=== PATIENT | female | born 1965 ===

== ENCOUNTER 2017-05-18 16:19 | Emergency (ER) | payer OTHER ==
[2017-05-18 16:34] VITALS: TEMP 98.1
[2017-05-18] MEDS ORDERED: DiphenhydrAMINE 50 mg/ml Inj IVP STA ×2 (17:06→19:13)
[2017-05-18 17:21] LABS: BASO % 0.5 % (0.0-2.0); EOS # 0.1 K/uL (0.0-0.7); EOS % 1.3 % (0.0-4.0); HEMOGLOBIN 12.6 g/dL (12.0-16.0); LYMPH # 2.3 K/uL (1.0-4.3); LYMPH % 32.4 % (20.0-40.0); MEAN CELL VOLUME 89.6 fl (81.0-99.0); MEAN CORPUSCULAR HEMOGLOBIN 29.4 pg (27.0-31.0); MEAN CORPUSCULAR HGB CONC 32.8 g/dL (33.0-37.0); MEAN PLATELET VOLUME 8.2 fl (7.2-11.7); MONO # 0.4 K/uL (0.0-0.8); MONO % 6.1 % (0.0-10.0); NEUT # 4.3 K/uL (1.8-7.0); NEUT % 59.7 % (50.0-75.0); NRBC % 0.1 % (0.0-0.0); RBC 4.27 Mil/uL (3.80-5.20); RED CELL DISTRIBUTION WIDTH 13.7 % (11.5-14.5); WHITE BLOOD COUNT 7.2 K/uL (4.8-10.8)
[2017-05-18 17:23] LABS: PARTIAL THROMBOPLASTIN TIME 28.8 Seconds (25.6-37.1)
[2017-05-18 17:28] LABS: ALB/GLOB RATIO 1.1 (1.0-2.1); ALBUMIN 4.3 g/dL (3.5-5.0); ALT/SGPT 67 U/L (9-52); AST/SGOT 43 U/L (14-36); BLOOD UREA NITROGEN 23 mg/dl (7-17); GFR AFRICAN-AMERICAN > 60; GFR NON-AFRICAN AMERICAN > 60
[2017-05-18] MEDS ORDERED: DiphenhydrAMINE 50 mg/ml Inj ONE (19:23)
--- NOTE | 2017-05-18 19:50 | ED PDOC ---
HPI: SOB/CHF/COPD Time Seen by Provider: 05/18/17 16:39 Chief Complaint (Nursing): Shortness Of Breath Chief Complaint (Provider): SOB, chest pain - Surgery 1 week ago History Per: Patient History/Exam Limitations: no limitations Onset/Duration Of Symptoms: Days (3) Current Symptoms Are (Timing): Still Present Additional Complaint(s): 51 yo female with history of thyroid disease 1 week s/p ankle surgery on the right ankle presents with 3 days of SOB and chest pain. PT states she was also having pain in the right calf but it improved after the cast was removed and she was placed in a walking boot. Past Medical History Reviewed: Historical Data, Nursing Documentation, Vital Signs Vital Signs: Last Vital Signs Temp 98.1 F 05/18/17 16:32 Pulse 18 L 05/18/17 16:32 Resp 20 05/18/17 17:10 BP 117/78 05/18/17 16:32 Pulse Ox 100 05/18/17 16:32 - Medical History PMH: Hypothyroidism - Surgical History Surgical History: No Surg Hx - Family History Family History: States: No Known Family Hx - Allergies Allergies/Adverse Reactions: Allergies Allergy/AdvReac Type Severity Reaction Status Date / Time Iodinated Contrast- Oral and Allergy ITCHING Verified 05/18/17 16:32 IV Dye morphine Allergy SHORTNESS Verified 05/18/17 16:36 OF BREATH Penicillins Allergy RASH Verified 05/18/17 16:32 polyethylene glycol 3350 Allergy SWELLING Verified 05/18/17 16:32 [From Miralax] Review of Systems ROS Statement: Except As Marked, All Systems Reviewed And Found Negative Constitutional: Negative for: Fever, Chills Respiratory: Positive for: Shortness of Breath, SOB with Exertion Gastrointestinal: Negative for: Nausea, Vomiting, Diarrhea Musculoskeletal: Positive for: Leg Pain Physical Exam - Reviewed Nursing Documentation Reviewed: Yes Vital Signs Reviewed: Yes - Physical Exam Appears: Positive for: Well, Non-toxic, No Acute Distress Head Exam: Positive for: ATRAUMATIC, NORMAL INSPECTION, NORMOCEPHALIC Skin: Positive for: Normal Color, Warm, DRY Eye Exam: Positive for: Normal appearance ENT: Positive for: Normal ENT Inspection Neck: Positive for: Normal, Painless ROM Cardiovascular/Chest: Positive for: Regular Rate, Rhythm Respiratory: Positive for: Normal Breath Sounds. Negative for: Accessory Muscle Use Gastrointestinal/Abdominal: Positive for: Normal Exam, Bowel Sounds, Soft Back: Positive for: Normal Inspection Extremity: Positive for: Normal ROM Neurologic/Psych: Positive for: Alert, Oriented - Laboratory Results Result Diagrams: 05/18/17 17:00 05/18/17 17:00 - ECG O2 Sat by Pulse Oximetry: 100 Medical Decision Making Medical Decision Making: Endorsed pending chest CT and US to r/o PE/DVT. Disposition - Clinical Impression Clinical Impression: Chest pain - Patient ED Disposition Is Patient to be Admitted: Transfer of Care - Disposition Disposition: Transfer of Care Disposition Time: 20:00 Condition: STABLE
--- NOTE | 2017-05-18 19:53 | ED PDOC ---
HPI: SOB/CHF/COPD Time Seen by Provider: 05/18/17 16:39 Chief Complaint (Nursing): Shortness Of Breath Past Medical History Vital Signs: Last Vital Signs Temp 98.1 F 05/18/17 16:32 Pulse 18 L 05/18/17 16:32 Resp 20 05/18/17 17:10 BP 117/78 05/18/17 16:32 Pulse Ox 100 05/18/17 19:52 - Medical History PMH: Hypothyroidism - Surgical History Surgical History: No Surg Hx - Family History Family History: States: No Known Family Hx - Allergies Allergies/Adverse Reactions: Allergies Allergy/AdvReac Type Severity Reaction Status Date / Time Iodinated Contrast- Oral and Allergy ITCHING Verified 05/18/17 16:32 IV Dye morphine Allergy SHORTNESS Verified 05/18/17 16:36 OF BREATH Penicillins Allergy RASH Verified 05/18/17 16:32 polyethylene glycol 3350 Allergy SWELLING Verified 05/18/17 16:32 [From Miralax] Wells Criteria for PE - Wells Criteria for Pulmonary Embolism Clinical Signs and Symptoms of DVT: Yes P.E is #1 Diagnosis, or Equally Likely: Yes Heart Rate >100: No Immobilization at least 3 days;Surgery previous 4 weeks: Yes Previous, objectively diagnosed PE or DVT: No Hemoptysis: No Malignancy w/treatment within 6 months, or palliative: No Total Score: 5.5 - Laboratory Results Result Diagrams: 05/18/17 17:00 05/18/17 17:00 - ECG O2 Sat by Pulse Oximetry: 100 Disposition - Clinical Impression Clinical Impression: Chest pain - Disposition Disposition: Transfer of Care Disposition Time: 20:00 Condition: STABLE Forms: [employer] (Slovenian)
[2017-05-18] MEDS ORDERED: Iodixanol 320 MG/ML 100 ML BOTTLE IV ONE (20:37)
--- NOTE | 2017-05-18 21:10 | US ---
EXAM: US Duplex Right Lower Extremity Veins CLINICAL HISTORY: 51 years old, female; Pain; Leg, lower; Right; Prior surgery; Surgery date: 3-7 days post-operative; Surgery type: Tendon repair; Additional info: Leg pain, SOB, R/O dvt TECHNIQUE: Real-time ultrasound scan of the veins of the right lower extremity with color Doppler flow, spectral waveform analysis and compression. COMPARISON: No relevant prior studies available. FINDINGS: Deep veins: Normal color and spectral Doppler flow. Normal compressibility. No deep vein thrombosis from common femoral to popliteal vein. Superficial veins: No thrombosis. Soft tissues: No popliteal cyst. IMPRESSION: 1. No evidence of DVT within RIGHT lower extremity.
--- NOTE | 2017-05-18 21:29 | CT ---
EXAM: CT Angiography Chest With Intravenous Contrast CLINICAL HISTORY: 51 years old, female; Pain and signs and symptoms; Shortness of breath; Chest pain; Type not specified; Patient HX: Ankle surgery 1 week ago; Additional info: Chest pain, right ankle surgery, SOB TECHNIQUE: Axial computed tomographic angiography images of the chest with intravenous contrast using pulmonary embolism protocol. All CT scans at this facility use one or more dose reduction techniques, viz.: automated exposure control; ma/kV adjustment per patient size (including targeted exams where dose is matched to indication; i.e. head); or iterative reconstruction technique. MIP reconstructed images were created and reviewed. Coronal and sagittal reformatted images were created and reviewed. CONTRAST: 80 mL of [id number] administered intravenously. COMPARISON: No relevant prior studies available. FINDINGS: Limitations: Motion artifact - mild. Pulmonary arteries: No definite pulmonary embolism. Aorta: No aneurysm. No dissection. Lungs: No consolidation. Few pulmonary nodules, largest up to 0.8 cm within left upper lobe. Pleural space: No significant effusion. No pneumothorax. Heart: No cardiomegaly. No significant pericardial effusion. Thyroid: Diminutive or absent left lobe of thyroid. Bones/joints: No acute fracture. Soft tissues: Unremarkable. Lymph nodes: Few borderline enlarged short axis hilar lymph nodes. Liver: Few probable hepatic cysts. IMPRESSION: 1. No definite CT evidence of pulmonary embolism. 2. Pulmonary nodules. For low-risk patients recommend follow-up chest CT at 3-6 months. If unchanged consider an additional follow-up CT at 18-24 months. For high-risk patients (smoking history or other known risk factors) initial follow-up chest CT at 3-6 months and if unchanged, 18-24 months. 3. Incidental/non-acute findings are described above.
[2017-05-18 21:37] VITALS: BP 113/73; PULSE 72; RESP 16; O2SAT 99
--- NOTE | 2017-05-18 23:14 | ED PDOC ---
- Laboratory Results Result Diagrams: 05/18/17 17:00 05/18/17 17:00 - ECG O2 Sat by Pulse Oximetry: 99 - Progress ED Course And Treament: Case endorsed to typewriter aligner from Eleazar WILBURN pending imaging, re-eval EXAM: CT Angiography Chest With Intravenous Contrast CLINICAL HISTORY: 51 years old, female; Pain and signs and symptoms; Shortness of breath; Chest pain; Type not specified; Patient HX: Ankle surgery 1 week ago; Additional info: Chest pain, right ankle surgery, SOB TECHNIQUE: Axial computed tomographic angiography images of the chest with intravenous contrast using pulmonary embolism protocol. All CT scans at this facility use one or more dose reduction techniques, viz.: automated exposure control; ma/kV adjustment per patient size (including targeted exams where dose is matched to indication; i.e. head); or iterative reconstruction technique. MIP reconstructed images were created and reviewed. Coronal and sagittal reformatted images were created and reviewed. CONTRAST: 80 mL of [id number] administered intravenously. COMPARISON: No relevant prior studies available. FINDINGS: Limitations: Motion artifact - mild. Pulmonary arteries: No definite pulmonary embolism. Aorta: No aneurysm. No dissection. Lungs: No consolidation. Few pulmonary nodules, largest up to 0.8 cm within left upper lobe. Pleural space: No significant effusion. No pneumothorax. Heart: No cardiomegaly. No significant pericardial effusion. Thyroid: Diminutive or absent left lobe of thyroid. Bones/joints: No acute fracture. Soft tissues: Unremarkable. Lymph nodes: Few borderline enlarged short axis hilar lymph nodes. Liver: Few probable hepatic cysts. IMPRESSION: 1. No definite CT evidence of pulmonary embolism. 2. Pulmonary nodules. For low-risk patients recommend follow-up chest CT at 3-6 months. If unchanged consider an additional follow-up CT at 18-24 months. For high-risk patients (smoking history or other known risk factors) initial follow-up chest CT at 3-6 months and if unchanged, 18-24 months. 3. Incidental/non-acute findings are described above. EXAM: US Duplex Right Lower Extremity Veins CLINICAL HISTORY: 51 years old, female; Pain; Leg, lower; Right; Prior surgery; Surgery date: 3-7 days post-operative; Surgery type: Tendon repair; Additional info: Leg pain, SOB, R/O dvt TECHNIQUE: Real-time ultrasound scan of the veins of the right lower extremity with color Doppler flow, spectral waveform analysis and compression. COMPARISON: No relevant prior studies available. FINDINGS: Deep veins: Normal color and spectral Doppler flow. Normal compressibility. No deep vein thrombosis from common femoral to popliteal vein. Superficial veins: No thrombosis. Soft tissues: No popliteal cyst IMPRESSION: 1. No evidence of DVT within RIGHT lower extremity. Thank Patient educated on findings, discharged with instructions to follow up PMD/ podiatry. Return precautions given. Disposition - Clinical Impression Clinical Impression: Chest pain, Dyspnea - POA Present On Arrival: None - Disposition Disposition: Routine/Home Disposition Time: 23:14 Condition: STABLE Instructions: Shortness of Breath (Dyspnea) (DC), Chest Pain (DC) Forms: [facility] (Czech)
--- NOTE | 2017-05-19 10:15 | CARD ---
APPROVED REPORT EKG Measurement Heart [id number] <Conclusion> Normal sinus rhythm Normal ECG
== END 2017-05-18 23:46 | disposition home or self-care (01) ==
LOC: H.ER 16:19
DX: R07.9 Chest pain, unspecified (principal); Z88.0 Allergy status to penicillin; Z98.890 Other specified postprocedural states; J44.9 Chronic obstructive pulmonary disease, unspecified
CPT/HCPCS: 71275; 80053; 84443; 84484; 85025; 85378; 85610; 85730; 93005; 93971; 96374; 99284; J1200; J2930; Q9967